=== PATIENT | female | born 1955 | race Caucasian/White ===

== ENCOUNTER → 2021-05-20 | Outpatient (CLI) | payer OTHER | LOC: M.ULTRA 13:43 | PROVIDERS: ATTEND Nurse Practitioner Family | DX: I65.23 Occlusion and stenosis of bilateral carotid arteries (principal); I10 Essential (primary) hypertension; J30.89 Other allergic rhinitis; Z68.30 Body mass index [BMI] 30.0-30.9, adult ==

== ENCOUNTER → 2021-05-20 | Outpatient (CLI) | payer OTHER | LOC: M.CT 13:40 | PROVIDERS: ATTEND Nurse Practitioner Family | DX: Z13.6 Encounter for screening for cardiovascular disorders (principal); I25.10 Atherosclerotic heart disease of native coronary artery without angina pectoris ==